=== PATIENT | male | born 1955 | race Hispanic/Latino ===

== ENCOUNTER 2024-02-12 15:06 | Inpatient (IN) | payer MEDICARE ==
[2024-02-12 16:29] LABS: INR-International Normal Ratio 1.8; Prothrombin Time 21.1 sec (12.0-14.7)
[2024-02-12 16:30] LABS: PTT 53.4 sec (22.9-36.1)
[2024-02-12 16:31] LABS: ALT (SGPT) 53 U/L (8-55); AST (SGOT) 80 U/L (5-34); Albumin 0.9 g/dL (3.4-4.8); Alkaline Phosphatase 149 U/L (40-110); Anion Gap 13 mmol/L (10-20); BUN (Urea Nitrogen) 66 mg/dL (8.4-25.7); Bilirubin, Total 5.6 mg/dL (0.2-1.2); Calc. Creatinine Clearance 0 mL/min (70-130); Calcium 8.4 mg/dL (7.8-10.44); Carbon Dioxide 22 mmol/L (23-31); Chloride 93 mmol/L (98-107); Estimated GFR 25; Globulin 5.9 g/dL (2.4-3.5); Glucose 114 mg/dL (80-115); Lipase 10 U/L (8-78); Potassium 4.7 mmol/L (3.5-5.1); Protein, Total 6.8 g/dL (5.8-8.1); Sodium 123 mmol/L (136-145)
[2024-02-12 16:54] LABS: #Basophils Less than 0.03 10x3/uL (0.0-0.2); %Eosinophils 2.3 % (0.0-10.0); %Lymphocytes 11.1 % (21.0-51.0); %Monocytes 11.3 % (0.0-10.0); %Neutrophils 74.2 % (42.0-75.0); Hematocrit 29.5 % (42.0-52.0); Hemoglobin 10.6 g/dL (14.0-18.0); Mean Corpuscular HGB CONC 35.9 g/dL (32.0-36.0); Mean Corpuscular Hemoglobin 32.4 pg (27.0-31.0); Mean Corpuscular Volume 90.2 fL (78.0-98.0); Mean Platelet Volume 11.3 fL (7.4-10.4); Platelet Count 121 10x3/uL (130-400); RBC Distribution Width 19.8 % (11.5-14.5); Red Blood Cell (RBC) Count 3.27 mill/uL (4.70-6.10)
[2024-02-12 17:08] LABS: Troponin I 0.035 ng/mL (< 0.028)
[2024-02-12] MEDS ORDERED: traMADol HCl 50 MG TAB ONE (21:49)
[2024-02-12] MEDS: traMADol HCl 50 MG TAB PO PRN (21:52)
[2024-02-12] MEDS ORDERED: Lactulose 20 GM (30 mL) UDCUP ONE (22:45)
[2024-02-12] MEDS: Lactulose 20 GM (30 mL) UDCUP PO SCH (22:53)
[2024-02-12 23:13] LABS: Troponin I 0.038 ng/mL (< 0.028)
[2024-02-13 01:33] VITALS: BMI 25.5
[2024-02-13] MEDS: Morphine 2 MG/ML VIAL SLOW IVP PRN (02:09)
[2024-02-13 06:24] LABS: #Basophils Less than 0.03 10x3/uL (0.0-0.2); %Eosinophils 1.8 % (0.0-10.0); %Lymphocytes 8.2 % (21.0-51.0); %Monocytes 9.3 % (0.0-10.0); %Neutrophils 79.5 % (42.0-75.0); Hemoglobin 10.2 g/dL (14.0-18.0); Mean Corpuscular HGB CONC 35.2 g/dL (32.0-36.0); Mean Corpuscular Hemoglobin 31.9 pg (27.0-31.0); Mean Corpuscular Volume 90.6 fL (78.0-98.0); Mean Platelet Volume 10.8 fL (7.4-10.4); Platelet Count 121 10x3/uL (130-400)
[2024-02-13 06:30] LABS: ALT (SGPT) 51 U/L (8-55); AST (SGOT) 84 U/L (5-34); Albumin 0.9 g/dL (3.4-4.8); Alkaline Phosphatase 152 U/L (40-110); Anion Gap 13 mmol/L (10-20); BUN (Urea Nitrogen) 73 mg/dL (8.4-25.7); Bilirubin, Total 5.8 mg/dL (0.2-1.2); Calc. Creatinine Clearance 23 mL/min (70-130); Carbon Dioxide 23 mmol/L (23-31); Chloride 92 mmol/L (98-107); Estimated GFR 22; Globulin 5.3 g/dL (2.4-3.5); Glucose 95 mg/dL (80-115); Protein, Total 6.2 g/dL (5.8-8.1); Sodium 123 mmol/L (136-145)
[2024-02-13 06:36] LABS: Troponin I 0.036 ng/mL (< 0.028)
[2024-02-13] MEDS: Calcium Carbonate 500 MG ChewTAB PO SCH (09:59)
[2024-02-13] MEDS: Magnesium Oxide 400 MG TAB PO SCH (09:59)
[2024-02-13] MEDS: buPROPion 75 MG TAB PO SCH (09:59)
[2024-02-13] MEDS: Spironolactone 25 MG TAB PO SCH (09:59)
[2024-02-13] MEDS: Cholecalciferol 1,000 UNITS (25 MCG) TAB PO SCH (10:00)
[2024-02-13 17:45] LABS: RBC Count-Automated (BF) 155 /cu.mm; WBC/Nucleated-Auto (BF) 178 /cu.mm
[2024-02-13 17:49] LABS: BF Color Yellow; Body Fluid Source Ascites Body Fluid; Clarity Clear (Clear); Tube # EDTA
[2024-02-13] MEDS: Albumin 25% 25 GM (100 mL) BOT IVPB SCH (18:10)
[2024-02-13] MEDS: Midodrine HCl 5 MG TAB PO SCH ×2 (18:10→23:10)
[2024-02-13 18:23] LABS: BF Segmented Neutrophils 56 %; Cell Count Non Hematic 30 %; Lymphocytes 14 %
[2024-02-13] MEDS: Acetaminophen 325 MG TAB PO PRN (20:44)
[2024-02-13] MEDS: Lactulose 20 GM (30 mL) UDCUP PO SCH (20:44)
[2024-02-14 04:24] VITALS: TEMP 97.3
[2024-02-14 04:50] LABS: ALT (SGPT) 40 U/L (8-55); AST (SGOT) 78 U/L (5-34); Albumin 1.8 g/dL (3.4-4.8); Alkaline Phosphatase 126 U/L (40-110); Anion Gap 16 mmol/L (10-20); BUN (Urea Nitrogen) 78 mg/dL (8.4-25.7); Bilirubin, Total 7.3 mg/dL (0.2-1.2); Calc. Creatinine Clearance 19 mL/min (70-130); Carbon Dioxide 20 mmol/L (23-31); Chloride 89 mmol/L (98-107); Estimated GFR 18; Glucose 83 mg/dL (80-115); Potassium 5.1 mmol/L (3.5-5.1); Protein, Total 5.8 g/dL (5.8-8.1); Sodium 120 mmol/L (136-145)
[2024-02-14 04:53] LABS: #Basophils Less than 0.03 10x3/uL (0.0-0.2); %Eosinophils 2.4 % (0.0-10.0); %Lymphocytes 19.4 % (21.0-51.0); %Monocytes 9.1 % (0.0-10.0); %Neutrophils 68.2 % (42.0-75.0); Hematocrit 22.7 % (42.0-52.0); Mean Corpuscular HGB CONC 35.2 g/dL (32.0-36.0); Mean Corpuscular Hemoglobin 32.3 pg (27.0-31.0); Mean Corpuscular Volume 91.5 fL (78.0-98.0); Platelet Count 88 10x3/uL (130-400); RBC Distribution Width 19.9 % (11.5-14.5); Red Blood Cell (RBC) Count 2.48 mill/uL (4.70-6.10)
[2024-02-14] MEDS: Ondansetron PF 4 MG/2 ML Vial IVP PRN (05:55)
[2024-02-14 05:58] LABS: Platelet Adequacy Comment Significant Decrease; Poikilocytosis MODERATE=16-30 cells HPF (0-5); Schistocytes SLIGHT = 2-5 cells HPF (0-1); Target Cells SLIGHT = 2-5 cells HPF (0-1)
[2024-02-14] MEDS: Sodium Chloride 0.9% 500 ML IV SCH (06:00)
[2024-02-14] MEDS: Levothyroxine Sodium 125 MCG TAB PO SCH (06:04)
[2024-02-14 07:50] VITALS: BP 89/48
[2024-02-14 09:40] LABS: Magnesium 2.7 mg/dL (1.6-2.6)
[2024-02-14] MEDS: Bupropion 150 MG SR.TAB PO SCH (09:44)
[2024-02-14] MEDS ORDERED: traMADol HCl 50 MG TAB PO PRN (10:57)
== END 2024-02-14 11:09 | disposition hospice, inpatient (51) | DRG 432 ==
LOC: ERS 15:06 → ERHOLD 19:33 → 2NO 02-13 00:52
PROVIDERS: ADMIT Internal Medicine; ATTEND Hospitalist
PROC: 0W9G3ZZ Drainage of Peritoneal Cavity, Percutaneous Approach (ICD-10-PCS; principal; 2024-02-13)
PROC: 30233J1 Transfusion of Nonautologous Serum Albumin into Peripheral Vein, Percutaneous Approach (ICD-10-PCS; 2024-02-13)
DX: K70.31 Alcoholic cirrhosis of liver with ascites (principal); G93.41 Metabolic encephalopathy; K76.7 Hepatorenal syndrome; N17.9 Acute kidney failure, unspecified; E87.1 Hypo-osmolality and hyponatremia; I5A Non-ischemic myocardial injury (non-traumatic); N18.4 Chronic kidney disease, stage 4 (severe); Z79.899 Other long term (current) drug therapy; E78.5 Hyperlipidemia, unspecified; Z98.890 Other specified postprocedural states; F17.210 Nicotine dependence, cigarettes, uncomplicated; D69.6 Thrombocytopenia, unspecified; Z66 Do not resuscitate; Z90.49 Acquired absence of other specified parts of digestive tract; K72.10 Chronic hepatic failure without coma; E11.22 Type 2 diabetes mellitus with diabetic chronic kidney disease; I12.9 Hypertensive chronic kidney disease with stage 1 through stage 4 chronic kidney disease, or unspecified chronic kidney disease; Z51.5 Encounter for palliative care
CPT/HCPCS: 36415; 36416; 49083; 70450; 80053; 82042; 82140; 82945; 83605; 83615; 83690; 83735; 83880; 84157; 84443; 84484; 85025; 85060; 85610; 85730; 87070; 87205; 89051; 93005; J2272; J2405; J7030; P9047

== ENCOUNTER 2024-02-14 11:33 | Inpatient (IN) | payer OTHER ==
[2024-02-14] MEDS ORDERED: Ondansetron PF 4 MG/2 ML Vial IVP PRN (11:45)
[2024-02-14] MEDS: Morphine 4 MG/ML VIAL SLOW IVP PRN (13:25)
[2024-02-15] MEDS: Lorazepam 2 MG/ML VIAL SLOW IVP PRN (04:21)
[2024-02-15] MEDS: Scopolamine 1 mg/72 hour Patch TOP PRN (04:22)
[2024-02-15 07:42] VITALS: BP 91/43; TEMP 97.6
== END 2024-02-15 14:19 | disposition expired | DRG 951 ==
LOC: 2NO 11:33
PROVIDERS: ADMIT Internal Medicine Nephrology; ATTEND Internal Medicine Nephrology
DX: Z51.5 Encounter for palliative care (principal); N18.6 End stage renal disease; K76.7 Hepatorenal syndrome; I12.0 Hypertensive chronic kidney disease with stage 5 chronic kidney disease or end stage renal disease; N17.9 Acute kidney failure, unspecified; E87.1 Hypo-osmolality and hyponatremia; I5A Non-ischemic myocardial injury (non-traumatic); E11.22 Type 2 diabetes mellitus with diabetic chronic kidney disease; E78.5 Hyperlipidemia, unspecified; Z90.49 Acquired absence of other specified parts of digestive tract; D69.6 Thrombocytopenia, unspecified; K70.31 Alcoholic cirrhosis of liver with ascites; Z66 Do not resuscitate
CPT/HCPCS: J2060; J2272